=== PATIENT | male | born 1995 | race Caucasian/White ===

== ENCOUNTER 2016-10-19 14:51 | Emergency (ER) | payer SELFPAY ==
[2016-10-19 15:09] VITALS: BP 146/93; PULSE 78; TEMP 36.6; O2SAT 98
--- NOTE | 2016-10-19 15:17 | EMERGENCY ROOM VISIT NOTE ---
ED Visit Note First contact with patient: 15:09 CHIEF COMPLAINT: Removal of sutures HISTORY OF PRESENT ILLNESS: This 21-year-old male patient presents to the emergency department for removal of sutures from their right second finger. The patient states that he had these placed in the [facility] emergency Department approximately 10 days ago. He is unsure of the specific date. He reports that he cut his finger with a knife. His tetanus is up-to-date. He denies any signs of infection. He does report continued pain in the finger. REVIEW OF SYSTEMS: A review of systems was performed with positives and pertinent negatives listed in the history of present illness. All other systems were reviewed and are negative. ALLERGIES: No known drug allergies MEDICATIONS: No chronic medications PMH: No significant past medical history. SOCIAL HISTORY: Patient lives locally with family. PHYSICAL EXAM: VITALS: Vitals are noted on the nurse's note and reviewed by myself. Vital signs stable. GENERAL: This is a 21-year-old male, in no acute distress, nondiaphoretic, well- developed well-nourished. SKIN: There is a well-healing sutured wound on the palmar aspect of the right second finger with no signs of infection. EMERGENCY DEPARTMENT COURSE: The patient was evaluated as above. Sutures were removed from the finger with no dehiscence. There is no evidence of infection. Scar reduction measures were discussed the the patient. The patient requested pain medication and was informed that this is not indicated for suture removal. The patient did become angry and states that he was going [place] [facility]. He was again informed that she would not receive narcotic pain medication. He was discharged home. DIAGNOSIS: Encounter for suture removal DISCHARGE INSTRUCTIONS & TREATMENT: Wash the remaining crusts off the wound. Keep the wound covered with SPF for the next 6 months to reduce scarring. Once the wound has fully healed, you may apply Vitamin E oil, cocoa butter, or any over the counter scar reducing formulations daily. Current/Historical Medications No Active Prescriptions or Reported Meds Allergies Coded Allergies: Acetaminophen (Verified Allergy, Intermediate, Facial swelling, 10/19/16) Bee Venom (Verified Allergy, Intermediate, Swelling, 10/19/16) Vital Signs Date Time Temp Pulse Resp B/P Pulse Ox O2 Delivery O2 Flow Rate FiO2 10/19/16 15:09 36.6 78 16 146/93 98 Departure Information Impression Primary Impression: Encounter for removal of sutures Dispostion Home / Self-Care Condition GOOD Prescriptions No Active Prescriptions or Reported Meds Referrals No Doctor, Assigned (PCP) Patient Instructions My [facility] Additional Instructions Wash the remaining crusts off the wound. Keep the wound covered with SPF for the next 6 months to reduce scarring. Once the wound has fully healed, you may apply Vitamin E oil, cocoa butter, or any over the counter scar reducing formulations daily.
== END 2016-10-19 15:25 | disposition home or self-care (01) ==
LOC: C.EDB 14:54 → C.EDD 15:25
DX: Z48.02 Encounter for removal of sutures (principal)